=== PATIENT | male | born 1985 | race Caucasian/White ===

== ENCOUNTER 2017-06-22 16:20 | Emergency (ER) | payer SELFPAY ==
[2017-06-22] MEDS ORDERED: Sodium Chloride 0.9% 1,000 ML IV ONE (17:18)
[2017-06-22] MEDS ORDERED: Sodium Chloride 0.9% 1,000 ML ONE (17:38)
[2017-06-22 17:53] LABS: BASO # 0.1 K/uL (0.0-0.2); BASO % 0.8 % (0.0-2.0); EOS # 0.1 K/uL (0.0-0.7); EOS % 1.1 % (0.0-4.0); HEMOGLOBIN 14.8 g/dL (12.0-18.0); LYMPH # 1.1 K/uL (1.0-4.3); LYMPH % 15.8 % (20.0-40.0); MEAN CELL VOLUME 88.8 fL (80.0-94.0); MEAN CORPUSCULAR HEMOGLOBIN 30.5 pg (27.0-31.0); MEAN CORPUSCULAR HGB CONC 34.3 g/dL (33.0-37.0); MEAN PLATELET VOLUME 7.1 fL (7.2-11.7); MONO # 0.5 K/uL (0.0-0.8); MONO % 7.4 % (0.0-10.0); NEUT # 5.1 K/uL (1.8-7.0); NEUT % 74.9 % (50.0-75.0); NRBC % 0.1 % (0.0-2.0); RBC 4.84 Mil/uL (4.40-5.90); RED CELL DISTRIBUTION WIDTH 13.7 % (11.5-14.5); WHITE BLOOD COUNT 6.8 K/uL (4.8-10.8)
[2017-06-22 18:06] LABS: ALB/GLOB RATIO 1.4 (1.0-2.1); ALBUMIN 4.5 g/dL (3.5-5.0); ALT/SGPT 18 U/L (21-72); AST/SGOT 16 U/L (17-59); BLOOD UREA NITROGEN 13 mg/dL (9-20); CALCIUM 9.3 mg/dl (8.6-10.4); GFR AFRICAN-AMERICAN > 60; GFR NON-AFRICAN AMERICAN > 60
--- NOTE | 2017-06-22 18:27 | C.PDOC ---
History Of Present Illness 31 year old is brought to the emergency department by his following drooling and tremor in his hands. Patient was taking Haldol twice a day for schizophrenia, as prescribed following a [address] [facility]. Patient called [facility] two days ago, complaining of the same drooling and tremors and was advised to stop taking the Haldol to see if the symptoms would resolve. Instead of stopping, the patient reports he took it for one more day and the symptoms improved. Patient reports to say he failed to take today's dose. Time Seen by Provider: 06/22/17 16:44 Chief Complaint (Nursing): ENT Problem History Per: Patient, Family () History/Exam Limitations: None Onset/Duration Of Symptoms: Days (2 weeks) Current Symptoms Are (Timing): Still Present Exacerbating Factor(s): Unknown Past Medical History Reviewed: Historical Data, Nursing Documentation, Vital Signs Vital Signs: Last Vital Signs Temp 97.5 F L 06/22/17 16:26 Pulse 89 06/22/17 16:26 Resp 18 06/22/17 16:26 BP 125/81 06/22/17 16:26 Pulse Ox 95 06/22/17 18:31 - Medical History PMH: Schizophrenia Surgical History: No Surg Hx Family History: States: No Known Family Hx - Social History Hx Alcohol Use: No Hx Substance Use: No Review Of Systems Except As Marked, All Systems Reviewed And Found Negative. ENT: Positive for: Other (drooling) Musculoskeletal: Positive for: Other (hand tremors) Physical Exam - Physical Exam Appears: Well, Non-toxic Skin: Normal Color, Warm Head: Atraumatic, Normacephalic Eye(s): bilateral: Normal Inspection Ear(s): Bilateral: Normal Nose: Normal Oral Mucosa: Moist, No Drooling Tongue: Normal Appearing, No Swelling Neck: Normal, Supple Chest: Symmetrical Cardiovascular: Rhythm Regular Respiratory: Normal Breath Sounds Gastrointestinal/Abdominal: Normal Exam Neurological/Psych: Oriented x3, Normal Speech, Normal Cognition ED Course And Treatment - Laboratory Results Result Diagrams: 06/22/17 17:48 06/22/17 17:48 Lab Interpretation: Normal (etoh neg.) ECG: Interpreted By Me ECG Rhythm: Sinus Rhythm ECG Interpretation: Normal Rate From EC O2 Sat by Pulse Oximetry: 95 Progress Note: IVF, benadryl PO Reevaluation Time: 18:31 Reassessment Condition: Improved - Physician Consult Information Outcome Of Conversation: 1829: d/w Crisis, pt may drop in to [facility] in tomorrow to start STAT psych meds Medical Decision Making Medical Decision Making: schizophrenia, with h/o same, recently started on Haldol 5 mg PO BID with dystonic reaction (drewling/shaking) but stopped Haldol yesterday and symptoms improved today without psych decompensation labs wnl pt may be started on stat psych meds tomorrow @ [facility] then continue opt f/u Disposition Doctor Will See Patient In The: Office Counseled Patient/Family Regarding: Studies Performed, Diagnosis - Disposition Disposition: HOME/ ROUTINE Disposition Time: 18:33 Condition: GOOD Forms: [employer] (Irish) - Clinical Impression Clinical Impression: Adverse reaction to drug in therapeutic use, 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
[2017-06-22 19:00] VITALS: BP 121/80; PULSE 72; RESP 16; TEMP 98.5; O2SAT 99
[2017-06-22 19:02] LABS: SQUAMOUS EPITHIAL 1 /hpf (0-5); URINE BACTERIA RARE (<OCC); URINE BILIRUBIN NEGATIVE (NEGATIVE); URINE BLOOD NEGATIVE (NEGATIVE); URINE CLARITY Clear (Clear); URINE COLOR Yellow (YELLOW); URINE GLUCOSE (UA) NORMAL (Normal); URINE LEUKOCYTE ESTERASE NEG Leu/uL (Negative); URINE PROTEIN NEGATIVE (NEGATIVE)
[2017-06-22 19:11] LABS: BARBITURATES, UR NEGATIVE (NEGATIVE); BENZODIAZEPINES, UR NEGATIVE (NEGATIVE); OPIATES, UR NEGATIVE (NEGATIVE)
[2017-06-22 19:14] LABS: PHENCYCLIDINE, UR NEGATIVE (NEGATIVE)
--- NOTE | 2017-06-23 23:24 | CARD ---
APPROVED REPORT EKG Measurement Heart [id number] CT 100P32 [id number] <Conclusion> Sinus rhythm with short CT Possible Lateral infarct, age undetermined Abnormal ECG
== END 2017-06-22 19:00 | disposition home or self-care (01) ==
LOC: C.ER 16:20
DX: R25.1 Tremor, unspecified (principal); T43.4X5A Adverse effect of butyrophenone and thiothixene neuroleptics, initial encounter; G24.02 Drug induced acute dystonia; F20.9 Schizophrenia, unspecified
CPT/HCPCS: 80053; 81001; 85025; 93005; 96360; 99284; G0480; J7040